=== PATIENT | female | born 1965 | race Caucasian/White ===

== ENCOUNTER 2016-11-10 13:30 | Inpatient (IN) | payer BC ==
[~2016-11-10] VITALS: Ht 162.6 cm; Wt 69.9 kg
[~2016-11-10 13:30] MED LIST: BACLOFEN; NORCO; TRAZODONE; WELLBUTRIN
[2016-11-10 13:35] VITALS: BP_SYST 98
[2016-11-10] MEDS ORDERED: PROMETHAZINE HCL 25 MG/ML AMP IM ONE (14:00)
[2016-11-10] MEDS ORDERED: fentaNYL CITRATE/PF 100 MCG/2 ML AMP IM ONE (14:00)
[2016-11-10] MEDS ORDERED: DIPHENHYDRAMINE INJ 50 MG/ML VIAL IM ONE (14:45)
[2016-11-10] MEDS ORDERED: HYDROmorphone 1 MG INJ. 1 MG/ML AMPUL IM ONE (14:45)
[2016-11-10] MEDS ORDERED: HYDR2TAB34 PO (16:14)
[2016-11-10] MEDS ORDERED: BUPR75TA8 PO (16:14)
[2016-11-10] MEDS ORDERED: TIZA2CAP7 PO (16:14)
[2016-11-10] MEDS ORDERED: TRAZ300T11 BC (16:14)
[2016-11-10] MEDS ORDERED: GABA-533 PO (16:14)
[2016-11-10] MEDS ORDERED: MORPHINE 2 MG/ML INJ. SYRINGE IVP PRN (16:15)
[2016-11-10 16:22] LABS: BASOPHILS % (AUTO) 0.7 % (0.0-2.0); EOSINOPHILS # (AUTO) 0.1 K/uL (0.0-0.4); EOSINOPHILS % (AUTO) 2.3 % (0.0-4.0); HEMATOCRIT 39.3 % (36-48); HEMOGLOBIN 13.4 g/dL (12.0-16.0); LYMPHOCYTES # (AUTO) 1.8 K/uL (1.0-5.5); LYMPHOCYTES % (AUTO) 33.3 % (20.5-51.5); MEAN CORPUSCULAR HEMOGLOBIN 32 pg (27-31); MEAN CORPUSCULAR HGB CONC 34 % (32-36); MEAN CORPUSCULAR VOLUME 93 fL (79.0-98.0); MONOCYTES # (AUTO) 0.2 K/uL (0.0-1.0); MONOCYTES % (AUTO) 4.5 % (1.7-9.3); NEUTROPHILS # (AUTO) 3.2 K/uL (1.8-7.7); NEUTROPHILS % (AUTO) 59.2 % (40.0-70.0); PLATELET COUNT (AUTO) 211 K/uL (130-430); RED BLOOD CELL COUNT(AUTO) 4.25 MIL/uL (4.2-6.2); RED CELL DISTRIBUTION WIDTH 12.3 % (9.0-15.0); WHITE BLOOD COUNT (AUTO) 5.3 K/uL (4.8-10.8)
[2016-11-10 16:32] LABS: CALCIUM 9.1 mg/dL (8.4-11.0); CREATININE 0.74 mg/dL (0.55-1.30); POTASSIUM 4.1 mmol/L (3.5-5.1)
[2016-11-10 16:37] LABS: TOTAL BILIRUBIN 0.3 mg/dL (0.0-1.0); TOTAL PROTEIN, SERUM 7.2 g/dL (6.4-8.3)
[2016-11-10] MEDS ORDERED: ACETAMINOPHEN 325 MG TABLET PO PRN (17:00)
[2016-11-10] MEDS ORDERED: MAGNESIUM SULFATE 50 ML IV PRN (17:00)
[2016-11-10] MEDS ORDERED: LORazepam 2 MG/ML VIAL IVP PRN (17:00)
[2016-11-10] MEDS ORDERED: POTASSIUM CHLORIDE 10 MEQ TAB.PRT.SR PO PRN (17:00)
[2016-11-10 17:13] VITALS: BP_SYST 118
[2016-11-10] MEDS: MORPHINE 2 MG/ML INJ. SYRINGE IVP PRN (18:08)
[2016-11-10 18:16] LABS: BILIRUBIN,URINE NEGATIVE (NEGATIVE); BLOOD, URINE NEGATIVE (NEGATIVE); CLARITY/URINE SL HAZY (CLEAR); COLOR,URINE YELLOW (YELLOW); GLUCOSE,URINE NEGATIVE (NEGATIVE); KETONES,URINE NEGATIVE (NEGATIVE); LEUKOCYTE ESTERASE ,URINE TRACE (NEGATIVE); NITRITE, URINE POSITIVE (NEGATIVE); PROTEIN URINE NEGATIVE (NEGATIVE); UROBILINOGEN,URINE 0.2 (0.2-1.0)
[2016-11-10 18:35] LABS: RBC,URINE 0-3 /HPF (0-3)
[2016-11-10 18:36] LABS: BACTERIA,URINE MANY /HPF (None Seen); MUCUS,URINE None Seen /LPF (None Seen)
[2016-11-10 19:20] VITALS: BP_SYST 94
[2016-11-10] MEDS: GABAPENTIN 400 MG CAPSULE PO SCH ×2 (19:20→21:03)
[2016-11-10] MEDS: buPROPion HCL 100 MG TABLET PO SCH (21:00)
[2016-11-10] MEDS ORDERED: buPROPion HCL 75 MG TABLET PO SCH (21:00)
[2016-11-10] MEDS: CYCLOBENZAPRINE HCL 10 MG TABLET (FLEXERIL) PO SCH (21:03)
[2016-11-10] MEDS: HYDROmorphone 2 MG TAB PO SCH (21:04)
[2016-11-10] MEDS: HEPARIN SODIUM,PORCINE 5000 UNITS/ML VIAL SUBCUT SCH (21:05)
[2016-11-10] MEDS: ZOLPIDEM TARTRATE 5 MG TABLET PO PRN (21:09)
[2016-11-10] MEDS: DOCUSATE SODIUM 100 MG CAPSULE PO PRN (21:09)
[2016-11-11 00:27] VITALS: BP_SYST 113
[2016-11-11 04:21] VITALS: BP_SYST 93
[2016-11-11 08:00] VITALS: BP_SYST 87
[2016-11-11] MEDS: GABAPENTIN 400 MG CAPSULE PO SCH ×4 (08:35→21:15)
[2016-11-11] MEDS: CYCLOBENZAPRINE HCL 10 MG TABLET (FLEXERIL) PO SCH ×2 (08:35→21:16)
[2016-11-11] MEDS: HYDROmorphone 2 MG TAB PO SCH ×3 (08:36→21:16)
[2016-11-11] MEDS: HEPARIN SODIUM,PORCINE 5000 UNITS/ML VIAL SUBCUT SCH ×2 (08:38→21:18)
[2016-11-11] MEDS ORDERED: MILK OF MAGNESIA 30 ML UDC PO ONE (09:15)
[2016-11-11] MEDS ORDERED: NA PHOS,M-B/NA PHOS,DI-BA 118 ML (FLEET ENEMA) RC ONE (09:15)
[2016-11-11] MEDS ORDERED: BISACODYL 5 MG TABLET.DR (DULCOLAX) PO PRN (09:15)
[2016-11-11] MEDS: cefTRIAXone 1 GM in D5W 50 ML IV SCH (09:55)
[2016-11-11] MEDS: buPROPion HCL 100 MG TABLET PO SCH ×2 (10:11→21:00)
[2016-11-11 12:00] VITALS: BP_SYST 115
[2016-11-11] MEDS: MORPHINE 2 MG/ML INJ. SYRINGE IVP PRN ×2 (12:00→16:16)
[2016-11-11] MEDS ORDERED: fentaNYL 25 MCG/HR PATCH TD SCH (15:00)
[2016-11-11] MEDS: DOCUSATE SODIUM 100 MG CAPSULE PO PRN (15:02)
[2016-11-11 16:26] VITALS: BP_SYST 128
[2016-11-11 19:40] VITALS: BP_SYST 131
[2016-11-11] MEDS ORDERED: MORPHINE 4 MG/ML INJ. SYRINGE IVP ONE ×2 (21:00→21:15)
[2016-11-11] MEDS: LACTULOSE 20 GM/30 ML UDC PO SCH (21:16)
[2016-11-11] MEDS: ZOLPIDEM TARTRATE 5 MG TABLET PO PRN (22:40)
[2016-11-11] MEDS: fentaNYL 100 MCG/HR PATCH TD SCH (22:40)
[2016-11-12] VITALS (9 sets, daily range): BP systolic 95–139
[2016-11-12] MEDS: DEXAMETHASONE SOD PHOSPHATE 4 MG/ML VIAL IVP SCH ×5 (00:06→23:42)
[2016-11-12] MEDS: MORPHINE 2 MG/ML INJ. SYRINGE IVP PRN ×4 (02:46→18:26)
[2016-11-12] MEDS: HYDROmorphone 2 MG TAB PO SCH ×3 (08:41→20:30)
[2016-11-12] MEDS: GABAPENTIN 400 MG CAPSULE PO SCH ×4 (08:42→20:29)
[2016-11-12] MEDS: CYCLOBENZAPRINE HCL 10 MG TABLET (FLEXERIL) PO SCH (08:42)
[2016-11-12] MEDS: POLYETHYLENE GLYCOL 3350, 17 GM/ POWD.PACK PO SCH (08:42)
[2016-11-12] MEDS: LACTULOSE 20 GM/30 ML UDC PO SCH ×3 (08:42→20:29)
[2016-11-12] MEDS: cefTRIAXone 1 GM in D5W 50 ML IV SCH (08:42)
[2016-11-12] MEDS: HEPARIN SODIUM,PORCINE 5000 UNITS/ML VIAL SUBCUT SCH ×2 (08:45→20:33)
[2016-11-12] MEDS: buPROPion HCL 100 MG TABLET PO SCH ×2 (10:50→20:50)
[2016-11-12] MEDS ORDERED: clonazePAM 0.5 MG TABLET PO ONE (11:15)
[2016-11-12] MEDS: METHOCARBAMOL 500 MG TABLET PO SCH ×3 (13:37→20:30)
[2016-11-12] MEDS: clonazePAM 0.5 MG TABLET PO SCH (20:29)
[2016-11-12] MEDS: DOCUSATE SODIUM 250 MG CAPSULE PO SCH (20:29)
[2016-11-12] MEDS ORDERED: buPROPion HCL 100 MG TABLET ONE (20:55)
[2016-11-12] MEDS: ZOLPIDEM TARTRATE 5 MG TABLET PO PRN (22:28)
[2016-11-13] MEDS: MORPHINE 2 MG/ML INJ. SYRINGE IVP PRN ×4 (02:21→22:14)
[2016-11-13 04:09] VITALS: BP_SYST 101
[2016-11-13] MEDS: DEXAMETHASONE SOD PHOSPHATE 4 MG/ML VIAL IVP SCH ×4 (05:22→23:36)
[2016-11-13 06:33] LABS: HEMATOCRIT 38.5 % (36-48); HEMOGLOBIN 13.4 g/dL (12.0-16.0); MEAN CORPUSCULAR HEMOGLOBIN 32 pg (27-31); MEAN CORPUSCULAR HGB CONC 35 % (32-36); MEAN CORPUSCULAR VOLUME 92 fL (79.0-98.0); PLATELET COUNT (AUTO) 267 K/uL (130-430); RED BLOOD CELL COUNT(AUTO) 4.18 MIL/uL (4.2-6.2); RED CELL DISTRIBUTION WIDTH 12.5 % (9.0-15.0); WHITE BLOOD COUNT (AUTO) 10.9 K/uL (4.8-10.8)
[2016-11-13 06:37] LABS: CALCIUM 9.1 mg/dL (8.4-11.0); CREATININE 0.74 mg/dL (0.55-1.30); POTASSIUM 3.9 mmol/L (3.5-5.1)
[2016-11-13 08:30] VITALS: BP_SYST 133
[2016-11-13 09:36] LABS: ATYPICAL LYMPHOCYTES % 0 % (0-0); BAND % (MANUAL) 2 % (0-6); BASOPHILS % (MANUAL) 0 % (0-2); EOSINOPHILS % (MANUAL) 0 % (0-7); LYMPHOCYTES % (MANUAL) 7 % (20-46); MONOCYTES % (MANUAL) 4 % (0-11)
[2016-11-13] MEDS: POLYETHYLENE GLYCOL 3350, 17 GM/ POWD.PACK PO SCH (09:43)
[2016-11-13] MEDS: LACTULOSE 20 GM/30 ML UDC PO SCH ×3 (09:43→20:06)
[2016-11-13] MEDS: cefTRIAXone 1 GM in D5W 50 ML IV SCH (09:43)
[2016-11-13] MEDS: DOCUSATE SODIUM 250 MG CAPSULE PO SCH ×2 (09:44→20:07)
[2016-11-13] MEDS: METHOCARBAMOL 500 MG TABLET PO SCH ×4 (09:44→20:07)
[2016-11-13] MEDS: HEPARIN SODIUM,PORCINE 5000 UNITS/ML VIAL SUBCUT SCH ×2 (09:44→20:06)
[2016-11-13] MEDS: clonazePAM 0.5 MG TABLET PO SCH ×2 (09:45→20:07)
[2016-11-13] MEDS: HYDROmorphone 2 MG TAB PO SCH ×3 (09:45→20:07)
[2016-11-13] MEDS: GABAPENTIN 400 MG CAPSULE PO SCH ×4 (09:45→20:06)
[2016-11-13] MEDS: buPROPion HCL 100 MG TABLET PO SCH ×2 (10:29→20:06)
[2016-11-13 12:16] VITALS: BP_SYST 102
[2016-11-13] MEDS: NICOTINE 14 MG/24 HR PATCH.TD24 TD SCH (15:46)
[2016-11-13 16:39] VITALS: BP_SYST 129
[2016-11-13 19:47] VITALS: BP_SYST 120
[2016-11-14 00:47] VITALS: BP_SYST 121
[2016-11-14] MEDS: ZOLPIDEM TARTRATE 5 MG TABLET PO PRN (02:09)
[2016-11-14 04:55] VITALS: BP_SYST 121
[2016-11-14] MEDS: DEXAMETHASONE SOD PHOSPHATE 4 MG/ML VIAL IVP SCH ×3 (05:10→17:45)
[2016-11-14 07:54] LABS: BASOPHILS % (AUTO) 0.2 % (0.0-2.0); HEMATOCRIT 37.8 % (36-48); HEMOGLOBIN 13.1 g/dL (12.0-16.0); LYMPHOCYTES # (AUTO) 1.1 K/uL (1.0-5.5); LYMPHOCYTES % (AUTO) 8.5 % (20.5-51.5); MEAN CORPUSCULAR HEMOGLOBIN 32 pg (27-31); MEAN CORPUSCULAR HGB CONC 35 % (32-36); MEAN CORPUSCULAR VOLUME 93 fL (79.0-98.0); MONOCYTES # (AUTO) 0.5 K/uL (0.0-1.0); MONOCYTES % (AUTO) 4.3 % (1.7-9.3); PLATELET COUNT (AUTO) 267 K/uL (130-430); RED BLOOD CELL COUNT(AUTO) 4.07 MIL/uL (4.2-6.2); RED CELL DISTRIBUTION WIDTH 12.4 % (9.0-15.0); WHITE BLOOD COUNT (AUTO) 12.6 K/uL (4.8-10.8)
[2016-11-14 08:00] VITALS: BP_SYST 141
[2016-11-14 08:21] LABS: CALCIUM 9.2 mg/dL (8.4-11.0); CREATININE 0.7 mg/dL (0.55-1.30); POTASSIUM 3.6 mmol/L (3.5-5.1)
[2016-11-14] MEDS: LACTULOSE 20 GM/30 ML UDC PO SCH ×3 (08:59→22:09)
[2016-11-14] MEDS: cefTRIAXone 1 GM in D5W 50 ML IV SCH (09:00)
[2016-11-14] MEDS: GABAPENTIN 400 MG CAPSULE PO SCH ×4 (09:00→22:08)
[2016-11-14] MEDS: POLYETHYLENE GLYCOL 3350, 17 GM/ POWD.PACK PO SCH (09:00)
[2016-11-14] MEDS: buPROPion HCL 100 MG TABLET PO SCH ×2 (09:01→22:08)
[2016-11-14] MEDS: clonazePAM 0.5 MG TABLET PO SCH ×2 (09:01→22:03)
[2016-11-14] MEDS: HYDROmorphone 2 MG TAB PO SCH ×3 (09:01→22:05)
[2016-11-14] MEDS: DOCUSATE SODIUM 250 MG CAPSULE PO SCH ×2 (09:01→22:09)
[2016-11-14] MEDS: METHOCARBAMOL 500 MG TABLET PO SCH ×4 (09:13→22:05)
[2016-11-14] MEDS: HEPARIN SODIUM,PORCINE 5000 UNITS/ML VIAL SUBCUT SCH ×2 (09:15→22:17)
[2016-11-14] MEDS: MORPHINE 2 MG/ML INJ. SYRINGE IVP PRN ×2 (10:21→16:23)
[2016-11-14] MEDS: NICOTINE 14 MG/24 HR PATCH.TD24 TD SCH (10:29)
[2016-11-14 11:34] VITALS: BP_SYST 127
[2016-11-14 15:30] VITALS: BP_SYST 133
[2016-11-14] MEDS: fentaNYL 100 MCG/HR PATCH TD SCH (17:45)
[2016-11-14] MEDS ORDERED: MAGNESIUM CITRATE 300 ML ORAL SOLUTION PO ONE (19:00)
[2016-11-14 19:41] VITALS: BP_SYST 134
[2016-11-14] MEDS ORDERED: GOLYTELY / COLYTE SOLUTION 4 LITERS PO ONE (20:15)
[2016-11-14] MEDS ORDERED: BISACODYL 5 MG TABLET.DR (DULCOLAX) PO ONE (20:15)
[2016-11-15 00:04] VITALS: BP_SYST 117
[2016-11-15 04:16] VITALS: BP_SYST 125
[2016-11-15 08:29] VITALS: BP_SYST 128
[2016-11-15] MEDS: POLYETHYLENE GLYCOL 3350, 17 GM/ POWD.PACK PO SCH (08:45)
[2016-11-15] MEDS: LACTULOSE 20 GM/30 ML UDC PO SCH ×2 (08:45→15:00)
[2016-11-15] MEDS: cefTRIAXone 1 GM in D5W 50 ML IV SCH (08:45)
[2016-11-15] MEDS: clonazePAM 0.5 MG TABLET PO SCH (08:46)
[2016-11-15] MEDS: HYDROmorphone 2 MG TAB PO SCH ×2 (08:46→15:00)
[2016-11-15] MEDS: buPROPion HCL 100 MG TABLET PO SCH (08:47)
[2016-11-15] MEDS: DOCUSATE SODIUM 250 MG CAPSULE PO SCH (08:47)
[2016-11-15] MEDS: GABAPENTIN 400 MG CAPSULE PO SCH ×3 (08:47→17:00)
[2016-11-15] MEDS: HEPARIN SODIUM,PORCINE 5000 UNITS/ML VIAL SUBCUT SCH (08:51)
[2016-11-15] MEDS: NICOTINE 14 MG/24 HR PATCH.TD24 TD SCH (08:57)
[2016-11-15] MEDS: METHOCARBAMOL 500 MG TABLET PO SCH ×4 (09:00→22:16)
[2016-11-15] MEDS: MORPHINE 2 MG/ML INJ. SYRINGE IVP PRN ×2 (10:06→15:13)
[2016-11-15 11:44] VITALS: BP_SYST 132
[2016-11-15] MEDS: ONDANSETRON HCL 4 MG/2 ML VIAL IVP PRN (15:11)
[2016-11-15 15:27] VITALS: BP_SYST 132
[2016-11-15] MEDS ORDERED: metroNIDAZOLE 500 mg/NS 100 ML IV ONE (18:00)
[2016-11-15 21:14] VITALS: BP_SYST 159
[2016-11-15] MEDS: metroNIDAZOLE 500 mg/NS 100 ML IV SCH (23:49)
[2016-11-16 00:04] VITALS: BP_SYST 140
[2016-11-16] MEDS: HYDROmorphone 2 MG TAB PO SCH ×3 (00:21→21:21)
[2016-11-16] MEDS: DOCUSATE SODIUM 250 MG CAPSULE PO SCH ×3 (00:24→21:20)
[2016-11-16] MEDS: LACTULOSE 20 GM/30 ML UDC PO SCH ×4 (00:24→21:19)
[2016-11-16] MEDS: clonazePAM 0.5 MG TABLET PO SCH ×3 (00:24→21:00)
[2016-11-16] MEDS: GABAPENTIN 400 MG CAPSULE PO SCH ×5 (00:25→21:20)
[2016-11-16] MEDS: buPROPion HCL 100 MG TABLET PO SCH ×3 (00:25→21:20)
[2016-11-16] MEDS: HEPARIN SODIUM,PORCINE 5000 UNITS/ML VIAL SUBCUT SCH ×3 (00:26→21:26)
[2016-11-16] MEDS: ONDANSETRON HCL 4 MG/2 ML VIAL IVP PRN (01:59)
[2016-11-16 04:57] VITALS: BP_SYST 134
[2016-11-16] MEDS: metroNIDAZOLE 500 mg/NS 100 ML IV SCH ×3 (05:31→22:00)
[2016-11-16] MEDS: MORPHINE 2 MG/ML INJ. SYRINGE IVP PRN ×3 (06:08→23:42)
[2016-11-16 07:37] LABS: BASOPHILS % (AUTO) 0.2 % (0.0-2.0); EOSINOPHILS % (AUTO) 0.3 % (0.0-4.0); HEMOGLOBIN 15.3 g/dL (12.0-16.0); MEAN CORPUSCULAR HEMOGLOBIN 31 pg (27-31); MEAN CORPUSCULAR HGB CONC 33 % (32-36); MEAN CORPUSCULAR VOLUME 93 fL (79.0-98.0); MONOCYTES # (AUTO) 0.5 K/uL (0.0-1.0); MONOCYTES % (AUTO) 3.9 % (1.7-9.3); NEUTROPHILS # (AUTO) 10.2 K/uL (1.8-7.7); NEUTROPHILS % (AUTO) 79.6 % (40.0-70.0); PLATELET COUNT (AUTO) 349 K/uL (130-430); RED BLOOD CELL COUNT(AUTO) 4.96 MIL/uL (4.2-6.2); RED CELL DISTRIBUTION WIDTH 12.3 % (9.0-15.0); WHITE BLOOD COUNT (AUTO) 12.8 K/uL (4.8-10.8)
[2016-11-16 08:06] LABS: ALBUMIN 3.2 g/dL (3.4-4.8); CALCIUM 8.6 mg/dL (8.4-11.0); CREATININE 0.67 mg/dL (0.55-1.30); POTASSIUM 3.8 mmol/L (3.5-5.1); TOTAL BILIRUBIN 0.4 mg/dL (0.0-1.0); TOTAL PROTEIN, SERUM 6.4 g/dL (6.4-8.3)
[2016-11-16 10:24] VITALS: BP_SYST 101
[2016-11-16] MEDS: POLYETHYLENE GLYCOL 3350, 17 GM/ POWD.PACK PO SCH (10:36)
[2016-11-16] MEDS: NICOTINE 14 MG/24 HR PATCH.TD24 TD SCH (10:48)
[2016-11-16] MEDS: METHOCARBAMOL 500 MG TABLET PO SCH ×4 (10:48→21:20)
[2016-11-16] MEDS: NACL 0.9% 1,000 ML IV SCH (10:56)
[2016-11-16 11:35] VITALS: BP_SYST 104
[2016-11-16 15:30] VITALS: BP_SYST 97
[2016-11-16 20:00] VITALS: BP_SYST 98
[2016-11-16] MEDS: ZOLPIDEM TARTRATE 5 MG TABLET PO PRN (23:55)
[2016-11-17] VITALS (7 sets, daily range): BP systolic 88–144
[2016-11-17] MEDS: metroNIDAZOLE 500 mg/NS 100 ML IV SCH ×3 (06:01→22:06)
[2016-11-17 06:42] LABS: BASOPHILS % (AUTO) 0.4 % (0.0-2.0); EOSINOPHILS # (AUTO) 0.1 K/uL (0.0-0.4); EOSINOPHILS % (AUTO) 1.6 % (0.0-4.0); HEMATOCRIT 36.6 % (36-48); HEMOGLOBIN 12.5 g/dL (12.0-16.0); LYMPHOCYTES # (AUTO) 2.3 K/uL (1.0-5.5); LYMPHOCYTES % (AUTO) 28.5 % (20.5-51.5); MEAN CORPUSCULAR HEMOGLOBIN 32 pg (27-31); MEAN CORPUSCULAR HGB CONC 34 % (32-36); MEAN CORPUSCULAR VOLUME 93 fL (79.0-98.0); MONOCYTES # (AUTO) 0.4 K/uL (0.0-1.0); MONOCYTES % (AUTO) 5.2 % (1.7-9.3); NEUTROPHILS # (AUTO) 5.2 K/uL (1.8-7.7); NEUTROPHILS % (AUTO) 64.3 % (40.0-70.0); PLATELET COUNT (AUTO) 239 K/uL (130-430); RED BLOOD CELL COUNT(AUTO) 3.95 MIL/uL (4.2-6.2); RED CELL DISTRIBUTION WIDTH 12.6 % (9.0-15.0)
[2016-11-17 06:59] LABS: CALCIUM 8.8 mg/dL (8.4-11.0); CREATININE 0.64 mg/dL (0.55-1.30); POTASSIUM 4.1 mmol/L (3.5-5.1)
[2016-11-17] MEDS: GABAPENTIN 400 MG CAPSULE PO SCH ×4 (09:00→22:08)
[2016-11-17] MEDS: METHOCARBAMOL 500 MG TABLET PO SCH ×4 (09:00→22:07)
[2016-11-17] MEDS: clonazePAM 0.5 MG TABLET PO SCH ×2 (09:00→22:07)
[2016-11-17] MEDS: POLYETHYLENE GLYCOL 3350, 17 GM/ POWD.PACK PO SCH (09:00)
[2016-11-17] MEDS: LACTULOSE 20 GM/30 ML UDC PO SCH ×3 (09:00→22:06)
[2016-11-17] MEDS: HEPARIN SODIUM,PORCINE 5000 UNITS/ML VIAL SUBCUT SCH ×2 (09:00→22:15)
[2016-11-17] MEDS: buPROPion HCL 100 MG TABLET PO SCH ×2 (09:00→22:08)
[2016-11-17] MEDS: DOCUSATE SODIUM 250 MG CAPSULE PO SCH ×2 (09:00→22:07)
[2016-11-17] MEDS: HYDROmorphone 2 MG TAB PO SCH ×3 (09:00→23:11)
[2016-11-17] MEDS ORDERED: BISACODYL 5 MG TABLET.DR (DULCOLAX) PO ONE ×3 (10:15→17:00)
[2016-11-17] MEDS ORDERED: GOLYTELY / COLYTE SOLUTION 4 LITERS PO ONE ×3 (10:15→18:00)
[2016-11-17] MEDS: NICOTINE 14 MG/24 HR PATCH.TD24 TD SCH (10:27)
[2016-11-17] MEDS: MORPHINE 2 MG/ML INJ. SYRINGE IVP PRN ×3 (11:32→22:02)
[2016-11-17] MEDS ORDERED: MIDAZOLAM HCL 5 MG/5 ML VIAL ONE ×2 (14:48)
[2016-11-17] MEDS ORDERED: MEPERIDINE HCL/PF 100 MG/ML AMP ONE ×2 (14:50)
[2016-11-17] MEDS: NACL 0.9% 1,000 ML IV SCH (17:52)
[2016-11-17] MEDS: fentaNYL 100 MCG/HR PATCH TD SCH (19:05)
[2016-11-17] MEDS: ZOLPIDEM TARTRATE 5 MG TABLET PO PRN (23:11)
[2016-11-18 00:48] VITALS: BP_SYST 117
[2016-11-18] MEDS: MORPHINE 2 MG/ML INJ. SYRINGE IVP PRN ×2 (01:58→06:18)
[2016-11-18 05:01] VITALS: BP_SYST 127
[2016-11-18] MEDS: metroNIDAZOLE 500 mg/NS 100 ML IV SCH ×2 (05:55→14:38)
[2016-11-18 07:13] LABS: BASOPHILS % (AUTO) 0.2 % (0.0-2.0); EOSINOPHILS # (AUTO) 0.2 K/uL (0.0-0.4); EOSINOPHILS % (AUTO) 2.2 % (0.0-4.0); HEMATOCRIT 36.4 % (36-48); HEMOGLOBIN 12.4 g/dL (12.0-16.0); LYMPHOCYTES # (AUTO) 2.1 K/uL (1.0-5.5); LYMPHOCYTES % (AUTO) 30.8 % (20.5-51.5); MEAN CORPUSCULAR HEMOGLOBIN 32 pg (27-31); MEAN CORPUSCULAR HGB CONC 34 % (32-36); MEAN CORPUSCULAR VOLUME 93 fL (79.0-98.0); MONOCYTES # (AUTO) 0.3 K/uL (0.0-1.0); NEUTROPHILS # (AUTO) 4.4 K/uL (1.8-7.7); NEUTROPHILS % (AUTO) 62.8 % (40.0-70.0); PLATELET COUNT (AUTO) 240 K/uL (130-430); RED BLOOD CELL COUNT(AUTO) 3.89 MIL/uL (4.2-6.2); RED CELL DISTRIBUTION WIDTH 12.3 % (9.0-15.0)
[2016-11-18 07:22] LABS: CALCIUM 8.5 mg/dL (8.4-11.0); CREATININE 0.51 mg/dL (0.55-1.30); POTASSIUM 3.6 mmol/L (3.5-5.1)
[2016-11-18 08:00] VITALS: BP_SYST 144
[2016-11-18] MEDS ORDERED: HYDROmorphone 2 MG/ML VIAL ONE (08:58)
[2016-11-18] MEDS: METHOCARBAMOL 500 MG TABLET PO SCH ×3 (09:00→17:16)
[2016-11-18] MEDS: LACTULOSE 20 GM/30 ML UDC PO SCH ×2 (09:00→14:34)
[2016-11-18] MEDS ORDERED: MORPHINE SULFATE 30 MG TABLET.SA PO SCH (09:00)
[2016-11-18] MEDS: clonazePAM 0.5 MG TABLET PO SCH (09:00)
[2016-11-18] MEDS: POLYETHYLENE GLYCOL 3350, 17 GM/ POWD.PACK PO SCH (09:00)
[2016-11-18] MEDS: HYDROmorphone 2 MG TAB PO SCH ×2 (09:00→14:34)
[2016-11-18] MEDS ORDERED: HYDROmorphone 2 MG/ML VIAL IVP PRN (09:00)
[2016-11-18] MEDS: DOCUSATE SODIUM 250 MG CAPSULE PO SCH (09:00)
[2016-11-18] MEDS: GABAPENTIN 400 MG CAPSULE PO SCH ×3 (09:00→17:16)
[2016-11-18] MEDS: buPROPion HCL 100 MG TABLET PO SCH (09:00)
[2016-11-18] MEDS ORDERED: MIDAZOLAM HCL 5 MG/5 ML VIAL ONE (10:07)
[2016-11-18] MEDS ORDERED: SIMETHICONE 40 MG/0.6 ML ML ONE (10:08)
[2016-11-18] MEDS ORDERED: MEPERIDINE HCL/PF 100 MG/ML AMP ONE (10:08)
[2016-11-18] MEDS: NACL 0.9% 1,000 ML IV SCH ×2 (10:20→13:37)
[2016-11-18] MEDS ORDERED: LR 1,000 ML IV.SOLN IV ONE (10:31)
[2016-11-18] MEDS ORDERED: ROCURONIUM BROMIDE 10 MG/ML (ZEMURON) IV ONE (10:31)
[2016-11-18] MEDS ORDERED: NS IRRIG SOLN 1000 ML IR ONE (10:31)
[2016-11-18] MEDS ORDERED: metroNIDAZOLE 500 mg/NS 100 mL IVPB IV ONE (10:31)
[2016-11-18] MEDS ORDERED: PROPOFOL 200MG/ 20ML VIAL (DIPRIVAN) IV ONE (10:31)
[2016-11-18] MEDS ORDERED: MIDAZOLAM HCL 5 MG/5 ML VIAL IVP ONE (10:31)
[2016-11-18] MEDS ORDERED: DEXAMETHASONE SOD PHOSPHATE 4 MG/ML VIAL IVP ONE (10:31)
[2016-11-18] MEDS ORDERED: METOCLOPRAMIDE HCL 10 MG/2 ML VIAL IVP ONE (10:31)
[2016-11-18] MEDS ORDERED: SEVOFLURANE 15 MIN GAS INH ONE (10:31)
[2016-11-18] MEDS ORDERED: fentaNYL CITRATE/PF 100 MCG/2 ML AMP IVP ONE (10:31)
[2016-11-18] MEDS ORDERED: LR 1,000 ML IV ONE (11:26)
[2016-11-18] MEDS ORDERED: ePHEDrine sulfate 50 MG/ML VIAL IVP PRN (11:30)
[2016-11-18] MEDS ORDERED: DIPHENHYDRAMINE INJ 50 MG/ML VIAL IVP PRN (11:30)
[2016-11-18] MEDS ORDERED: NALBUPHINE HCL 10 MG/ML AMP IVP PRN (11:30)
[2016-11-18] MEDS ORDERED: KETOROLAC TROMETHAMINE 30 MG VIAL IM PRN (11:30)
[2016-11-18] MEDS ORDERED: ONDANSETRON HCL 4 MG/2 ML VIAL IVP PRN ×2 (11:30)
[2016-11-18] MEDS ORDERED: fentaNYL CITRATE/PF 100 MCG/2 ML AMP IVP PRN (11:30)
[2016-11-18] MEDS ORDERED: NALOXONE HCL 0.4 MG/ML AMP (NARCAN) IVP PRN (11:30)
[2016-11-18 12:00] VITALS: BP_SYST 134
[2016-11-18] MEDS: HEPARIN SODIUM,PORCINE 5000 UNITS/ML VIAL SUBCUT SCH (13:25)
[2016-11-18] MEDS: NICOTINE 14 MG/24 HR PATCH.TD24 TD SCH (14:33)
[2016-11-18 16:18] VITALS: BP_SYST 154
[2016-11-18 16:23] VITALS: BP_SYST 154
== END 2016-11-18 17:20 | disposition home or self-care (01) | DRG 552 ==
LOC: SED 13:32 → SMU 16:21 → MERGE 16:21 → SMU 17:05
PROVIDERS: ADMIT General Practice; ATTEND General Practice
PROC: 0DB78ZX Excision of Stomach, Pylorus, Via Natural or Artificial Opening Endoscopic, Diagnostic (ICD-10-PCS; 2016-11-18)
PROC: 0DBN8ZZ Excision of Sigmoid Colon, Via Natural or Artificial Opening Endoscopic (ICD-10-PCS; 2016-11-18)
PROC: 0DB98ZX Excision of Duodenum, Via Natural or Artificial Opening Endoscopic, Diagnostic (ICD-10-PCS; principal; 2016-11-18 11:00)
DX: S32.018A Other fracture of first lumbar vertebra, initial encounter for closed fracture (principal); N39.0 Urinary tract infection, site not specified; F11.20 Opioid dependence, uncomplicated; R74.8 Abnormal levels of other serum enzymes; K64.8 Other hemorrhoids; K29.70 Gastritis, unspecified, without bleeding; D12.5 Benign neoplasm of sigmoid colon; F17.210 Nicotine dependence, cigarettes, uncomplicated; F32.9 Major depressive disorder, single episode, unspecified; G89.4 Chronic pain syndrome; M54.9 Dorsalgia, unspecified; F41.1 Generalized anxiety disorder; K59.09 Other constipation; W11.XXXA Fall on and from ladder, initial encounter; Y93.89 Activity, other specified; Y99.8 Other external cause status; Y92.89 Other specified places as the place of occurrence of the external cause; Z98.1 Arthrodesis status; Z88.8 Allergy status to other drugs, medicaments and biological substances; Z90.710 Acquired absence of both cervix and uterus; Z90.49 Acquired absence of other specified parts of digestive tract
CPT/HCPCS: 36415; 72100-TC; 72131; 72220-TC; 74020-TC; 80048; 80053; 81000-TC; 83605; 83690-TC; 85007; 85025; 85027; 87040-TC; 87081; 87086; 87186-TC; 88305; 88312; 88313; 96372; 97110-GP; 97116-GP; 97530-GP; 99285; J0696; J1100; J1170; J1200; J1644; J2060; J2175; J2250; J2270; J2405; J2550; J2704; J2765; J3010; J3490; J7030; J7050; J7060; J7120